=== PATIENT | male | born 1990 | race Caucasian/White ===

== ENCOUNTER 2017-05-04 00:29 | Emergency (ER) | payer BC ==
[~2017-05-04] VITALS: Ht 175.3 cm; Wt 112.5 kg
[2017-05-04 00:37] VITALS: BP 141/92; PULSE 119; RESP 18; TEMP 97.9; O2SAT 99
== END 2017-05-04 02:11 | disposition left against medical advice (07) ==
LOC: PHED 00:29
DX: F41.9 Anxiety disorder, unspecified (principal)
CPT/HCPCS: 99281